=== PATIENT | male | born 1945 | race Caucasian/White ===

== ENCOUNTER 2018-12-18 08:45 | Day surgery (SDC) | payer BC, MEDICARE ==
[2018-12-18] MEDS ORDERED: LIDOCAINE 2% MDV (20MG/ML) 20ML VIAL IV ONE (08:46)
[2018-12-18] MEDS ORDERED: PROPOFOL 10 MG/ML VIAL IV ONE (08:46)
--- NOTE | 2018-12-18 15:31 | Operative Note ---
DATE OF SURGERY: 12/18/2018 OPERATION: COLONOSCOPY to the cecum. INDICATION: Prior history of adenomatous polyps. Last examination was 2009. He returns at this time for surveillance. ANESTHESIA: Intravenous sedation was administered by the department of anesthesiology and included Diprivan titrated to effect. PROCEDURE: Following informed consent from this alert individual including a discussion of the risks and benefits of the procedure and an opportunity for the patient to ask questions, the patient was in the left lateral decubitus position. A digital rectal examination was performed. No abnormalities were noted. Following this, the Olympus [id number] video colonoscope was inserted into the rectum without resistance. The rectal mucosa had a normal appearance with normal folds and distensibility. The colonoscope was advanced up through the colon to the level of the cecum without much difficulty. Throughout the bowel the mucosa appeared normal, the folds were normal, and the bowel was fairly well distensible. The cecum was defined by noting the appendiceal orifice and ileocecal valve. From the base of the cecum, the colonoscope was then withdrawn. The colon preparation was good. In the sigmoid colon, there was a solitary diverticulum noted. No other changes were appreciated. Retroflexion in the rectum was endoscopically normal. The endoscope was straightened and removed. The patient tolerated the procedure well and was returned to the recovery area in stable condition. IMPRESSION: 1. Sigmoid diverticulosis. 2. Otherwise unremarkable colonoscopy to the cecum. RECOMMENDATIONS: The patient was advised to have recheck colonoscopy in 5 years' time for polyp surveillance. He will otherwise follow up with Dr. Brian Ayala. Further recommendations will be forthcoming pending As always, thank you for allowing me to participate in the care of your patient. CC: DO ANDREW Mayo
== END 2018-12-18 11:00 | disposition home or self-care (01) ==
LOC: HOP 08:45
PROVIDERS: ATTEND Internal Medicine Gastroenterology
DX: Z12.11 Encounter for screening for malignant neoplasm of colon (principal); Z86.010 Personal history of colon polyps; K57.30 Diverticulosis of large intestine without perforation or abscess without bleeding; E78.00 Pure hypercholesterolemia, unspecified